=== PATIENT | female | born 1995 | race Caucasian/White ===

== ENCOUNTER 2017-05-13 19:53 | Emergency (ER) | payer BC ==
[2017-05-13] MEDS ORDERED: Ondansetron INJ* 2 MG/ML VIAL IV ONE (20:31)
[2017-05-13 20:46] VITALS: BP 125/95
[2017-05-13] MEDS: NS 0.9% 1000 ML* 2,000 ML IV ONE (20:53)
[2017-05-13 20:58] LABS: Hematocrit 38 % (35-47); Hemoglobin 12.8 g/dl (12.0-16.0); Mean Corpuscular HGB Conc 34 g/dl (31-36); Mean Corpuscular Hemoglobin 29 pg (27-31); Mean Corpuscular Volume 86 fL (80-97); Mean Platelet Volume 8 um3 (7.4-10.4); Red Blood Count 4.44 10^6/ul (4.0-5.4); Red Cell Distribution Width 14 % (10.5-15); White Blood Count 9.5 10^3/ul (3.5-10.8)
[2017-05-13 21:00] LABS: Urine Bilirubin Negative (Negative); Urine Glucose Negative (Negative); Urine Nitrite Negative (Negative)
[2017-05-13 21:17] LABS: ALT 10 U/L (7-52); AST 17 U/L (13-39); Albumin 4.6 g/dL (3.2-5.2); Alkaline Phosphatase 47 U/L (34-104); Anion Gap 7 mmol/L (2-11); BUN/Creatinine Ratio 14.1 (8-20); Blood Urea Nitrogen 12 mg/dL (6-24); C Reactive Protein < 1.00 mg/L (< 5.00); CO2 Carbon Dioxide 25 mmol/L (22-32); Calcium 9.3 mg/dL (8.6-10.3); Chloride 103 mmol/L (101-111); EGFR African American 109.7 (>60); EGFR Non-African American 85.3 (>60); Globulin 2.9 g/dL (2-4); Glucose 112 mg/dL (70-100); Lipase 36 U/L (11.0-82.0); Magnesium 1.9 mg/dL (1.9-2.7); Potassium 3.6 mmol/L (3.5-5.0); Sodium 135 mmol/L (133-145); Total Protein 7.5 g/dL (6.4-8.9)
[2017-05-14] MEDS ORDERED: Ondansetron ODT TAB* 4 MG PO ONE (00:39)
--- NOTE | 2017-05-14 00:46 | ED ---
Paulino Saleh Rebecca, scribed for Alexandr Beltrán MD on 05/13/17 at 205 . Headache - HPI Summary HPI Summary: 21 y/o F presents to [facility] c/o headache, nausea, and vomiting since 1800. Pt describes the severity as 7/10 and says she Never had a headache this bad in my life. She reports that her LEE is getting progressively worse and is vomiting every 10 minutes. Symptoms are alleviated by nothing. Symptoms are aggravated by nothing. Pts friend reports possible dehydration. Pt vomited at 2028. Pt is present in [place] for a sailing competition but did not go out on the water. - History Of Current Complaint Chief Complaint: EDAbdPain Stated Complaint: HEADACHE/VOMTING/NAUSEA Time Seen by Provider: 05/13/17 20:27 Hx Obtained From: Patient Onset/Duration: Started hours ago, Still Present Currently Pain Is: Current Pain Scale(0-10)= - 7/10, Severe - "never had a headache this bad in my life" Timing: Constant Location of Headache: Frontal Aggravating Factor: Nothing Allevating Factors: Nothing Associated Signs And Symptoms: Nausea, Vomiting - Allergies/Home Medications Allergies/Adverse Reactions: Allergies Allergy/AdvReac Type Severity Reaction Status Date / Time No Known Allergies Allergy Verified 05/13/17 19:59 PMH/Surg Hx/FS Hx/Imm Hx Endocrine/Hematology History: Denies: Hx Diabetes Cardiovascular History: Denies: Hx Coronary Artery Disease, Hx Hypertension Respiratory History: Reports: Hx Pneumonia Opthamlomology History: Denies: Hx Legally Blind EENT History: Denies: Hx Deafness Infectious Disease History: No Infectious Disease History: Denies: Traveled Outside the [place] in Last 30 Days - Family History Known Family History: Positive: Other - EtOH abuse (grandparents) - Social History Alcohol Use: Rare Substance Use Type: Reports: None Smoking Status (MU): Never Smoked Tobacco Review of Systems Positive: Vomiting, Nausea Positive: Headache All Other Systems Reviewed And Are Negative: Yes Physical Exam - Summary Physical Exam Summary: General: moderate distress, dry heaving Skin: warm, color reflects adequate perfusion, dry Head: normal Eyes: EOMI, NADIRA ENT: oral mucosa dry Neck: supple, nontender Respiratory: CTA, breath sounds present Cardiovascular: RRR Abdomen: soft, nontender Bowel: present Musculoskeletal: normal, strength/ROM intact Neurological: normal, sensory/motor intact, A&O x3 Psychological: affect/mood appropriate Triage Information Reviewed: Yes Vital Signs On Initial Exam: Initial Vitals Temp Pulse Resp BP Pulse Ox 96.9 F 85 18 132/85 96 05/13/17 19:59 05/13/17 19:59 05/13/17 19:59 05/13/17 19:59 05/13/17 19:59 Vital Signs Reviewed: Yes - [place] Coma Scale Best Eye Response: 4 - Spontaneous Best Motor Response: 6 - Obeys Commands Best Verbal Response: 5 - Oriented Coma Scale Total: 15 Diagnostics - Vital Signs Vital Signs Temp Pulse Resp BP Pulse Ox 05/13/17 19:59 96.9 F 85 18 132/85 96 - Laboratory Lab Results: Lab Results 05/13/17 05/13/17 05/13/17 Range/Units 20:44 20:44 20:44 WBC 9.5 (3.5-10.8) 10^3/ul RBC 4.44 (4.0-5.4) 10^6/ul Hgb 12.8 (12.0-16.0) g/dl Hct 38 (35-47) % MCV 86 (80-97) fL MCH 29 (27-31) pg MCHC 34 (31-36) g/dl RDW 14 (10.5-15) % Plt Count 251 (150-450) 10^3/ul MPV 8 (7.4-10.4) um3 Neut % (Auto) 67.1 (38-83) % Lymph % (Auto) 24.1 L (25-47) % [place] % (Auto) 6.7 (1-9) % Eos % (Auto) 1.2 (0-6) % Baso % (Auto) 0.9 (0-2) % Absolute Neuts (auto) 6.4 (1.5-7.7) 10^3/ul Absolute Lymphs (auto) 2.3 (1.0-4.8) 10^3/ul Absolute Monos (auto) 0.6 (0-0.8) 10^3/ul Absolute Eos (auto) 0.1 (0-0.6) 10^3/ul Absolute Basos (auto) 0.1 (0-0.2) 10^3/ul Absolute Nucleated RBC 0 10^3/ul Nucleated RBC % 0 INR (Anticoag Therapy) 0.86 L (0.89-1.11) APTT 24.1 L (26.0-36.3) seconds Sodium 135 (133-145) mmol/L Potassium 3.6 (3.5-5.0) mmol/L Chloride 103 (101-111) mmol/L Carbon Dioxide 25 (22-32) mmol/L Anion Gap 7 (2-11) mmol/L BUN 12 (6-24) mg/dL Creatinine 0.85 (0.51-0.95) mg/dL Est GFR ( Amer) 109.7 (>60) Est GFR (Non-Af Amer) 85.3 (>60) BUN/Creatinine Ratio 14.1 (8-20) Glucose 112 H (70-100) mg/dL Lactic Acid (0.5-2.0) mmol/L Calcium 9.3 (8.6-10.3) mg/dL Magnesium 1.9 (1.9-2.7) mg/dL Total Bilirubin 0.30 (0.2-1.0) mg/dL AST 17 (13-39) U/L ALT 10 (7-52) U/L Alkaline Phosphatase 47 (34-104) U/L C-Reactive Protein < 1.00 (< 5.00) mg/L Total Protein 7.5 (6.4-8.9) g/dL Albumin 4.6 (3.2-5.2) g/dL Globulin 2.9 (2-4) g/dL Albumin/Globulin Ratio 1.6 (1-3) Lipase 36 (11.0-82.0) U/L Beta HCG, Quant < 0.60 mIU/mL Urine Color Urine Appearance Urine pH (5-9) Ur Specific [place] (1.010-1.030) Urine Protein (Negative) Urine Ketones (Negative) Urine Blood (Negative) Urine Nitrate (Negative) Urine Bilirubin (Negative) Urine Urobilinogen (Negative) Ur Leukocyte Esterase (Negative) Urine Glucose (Negative) 05/13/17 05/13/17 Range/Units 20:44 20:44 WBC (3.5-10.8) 10^3/ul RBC (4.0-5.4) 10^6/ul Hgb (12.0-16.0) g/dl Hct (35-47) % MCV (80-97) fL MCH (27-31) pg MCHC (31-36) g/dl RDW (10.5-15) % Plt Count (150-450) 10^3/ul MPV (7.4-10.4) um3 Neut % (Auto) (38-83) % Lymph % (Auto) (25-47) % [place] % (Auto) (1-9) % Eos % (Auto) (0-6) % Baso % (Auto) (0-2) % Absolute Neuts (auto) (1.5-7.7) 10^3/ul Absolute Lymphs (auto) (1.0-4.8) 10^3/ul Absolute Monos (auto) (0-0.8) 10^3/ul Absolute Eos (auto) (0-0.6) 10^3/ul Absolute Basos (auto) (0-0.2) 10^3/ul Absolute Nucleated RBC 10^3/ul Nucleated RBC % INR (Anticoag Therapy) (0.89-1.11) APTT (26.0-36.3) seconds Sodium (133-145) mmol/L Potassium (3.5-5.0) mmol/L Chloride (101-111) mmol/L Carbon Dioxide (22-32) mmol/L Anion Gap (2-11) mmol/L BUN (6-24) mg/dL Creatinine (0.51-0.95) mg/dL Est GFR ( Amer) (>60) Est GFR (Non-Af Amer) (>60) BUN/Creatinine Ratio (8-20) Glucose (70-100) mg/dL Lactic Acid 0.9 (0.5-2.0) mmol/L Calcium (8.6-10.3) mg/dL Magnesium (1.9-2.7) mg/dL Total Bilirubin (0.2-1.0) mg/dL AST (13-39) U/L ALT (7-52) U/L Alkaline Phosphatase (34-104) U/L C-Reactive Protein (< 5.00) mg/L Total Protein (6.4-8.9) g/dL Albumin (3.2-5.2) g/dL Globulin (2-4) g/dL Albumin/Globulin Ratio (1-3) Lipase (11.0-82.0) U/L Beta HCG, Quant mIU/mL Urine Color Straw Urine Appearance Clear Urine pH 7.0 (5-9) Ur Specific [place] 1.010 (1.010-1.030) Urine Protein Negative (Negative) Urine Ketones Negative (Negative) Urine Blood Negative (Negative) Urine Nitrate Negative (Negative) Urine Bilirubin Negative (Negative) Urine Urobilinogen Negative (Negative) Ur Leukocyte Esterase Negative (Negative) Urine Glucose Negative (Negative) Result Diagrams: 05/13/17 20:44 05/13/17 20:44 Lab Statement: Any lab studies that have been ordered have been reviewed, and results considered in the medical decision making process. Re-Evaluation - Re-Evaluation First Eval Re-Evaluation Time: 21:16 Change: Improved Comment: Pt's sx have improved, she continues to complain of LEE, but it is better than it was previously. Second Eval Re-Evaluation Time: 21:41 Change: Improved Comment: The pt's sx have improved. Her physical exam is now benign and she is no longer dry heaving. Headache Course/Dx - Course Course Of Treatment: FRONTAL LEE ONSET OVER 2 HOURS. NAUSEA/VOMITNG WITH THE PAIN. LEE GONE IN ED AFTER IVF AND ZOFRAN. DISCUSSED HEAD CT WITH PATIENT. SHE DECLINED HEAD CT. WE DISCUSSED BRAIN BLEEDING A POSSIBLE CAUSE OF LEE AND HOW THE CT WOULD HELP DIAGNOSE A BLEED. AFTER SEVEAL DISCUSSIONS AND THE PATIENT'S LEE COMPLETELY GONE, PATIENT DECIDED SHE DID NOT WANT THE HEAD CT. DISCHARGED WITH ZOFAN AND INSTRUCTIONS TO RETURN TO THE ED WITH ANY FURTHER HEADACHE OR NEUROLOGIC SYMPTOMS. Assessment/Plan: Medications reviewed. BP elevated and advised to f/u with PCP. - Diagnoses Provider Diagnoses: Headache, Vomiting Discharge - Discharge Plan Condition: Stable Disposition: HOME Patient Education Materials: General Headache (ED), Acute Nausea and Vomiting ( ED) Referrals: No Primary Care Phys,NOPCP [Primary Care Provider] - Additional Instructions: FOLLOW UP WITH YOUR DOCTOR. RETURN TO THE EMERGENCY DEPARTMENT FOR ANY WORSENING OF YOUR CONDITION; HEADACHE , WEAKNESS, NUMBNESS, DIFFICULTY WITH VISION OR SPEECH OR QUESTIONS OR CONCERNS. The documentation as recorded by the Paulino gaspar Rebecca accurately reflects the service I personally performed and the decisions made by me, Alexandr Beltrán MD.
== END 2017-05-14 01:01 | disposition home or self-care (01) ==
LOC: ED 19:53
DX: R51 Headache (principal); R11.2 Nausea with vomiting, unspecified
CPT/HCPCS: 36415; 80053; 81003; 83605; 83690; 83735; 84702; 85025; 85610; 85730; 86140; 96361; 96374; 99282; A9270-GY; J2405